=== PATIENT | male | born 1935 | race Caucasian/White ===

== ENCOUNTER 2020-08-15 18:44 | Day surgery (SDCO) | payer OTHER ==
[2020-08-15 21:57] LABS: BASOPHIL 0.3 % (0-2); EOSINOPHIL 1.1 % (0-7); HCT 43.8 % (42.0-52.0); HGB 14.1 g/dl (13.2-18.0); LYMPHOCYTE 20.1 % (15-48); MCH 28.5 pg (25.0-31.0); MCHC 32.2 g/dL (32.0-36.0); MCV 88.5 fL (78.0-100.0); MONOCYTE 8.5 % (0-12); MPV 10.7 fL (6.0-9.5); NEUTROPHIL 69.7 % (41-80); NRBC 0; PLT 254 K/uL (150-400); RBC 4.95 M/uL (4.70-6.00); RDW 15.4 % (11.5-14.0); WBC 12.3 K/uL (4.0-10.5)
[2020-08-15 22:23] LABS: ALBUMIN 3.2 g/dL (3.4-5.0); BILIRUBIN - TOTAL 0.5 mg/dL (0.2-1.0); BUN/CREAT RATIO (CALC) 19.3 RATIO; CREATININE 0.57 mg/dL (0.67-1.17); GLOBULIN (CALCULATION) 3.6 g/dL; POTASSIUM 4.1 mmol/L (3.5-5.1); TOTAL PROTEIN 6.8 g/dL (6.4-8.2)
[2020-08-16] MEDS ORDERED: NOVOLOG FL100 UNIT/1 SC (00:15)
[2020-08-16] MEDS ORDERED: METFORMIN HCL500 M3 PO (00:16)
[2020-08-16] MEDS ORDERED: TAMSULOSIN HCL0.4 MG PO (00:21)
[2020-08-16] MEDS ORDERED: PIOGLITAZONE HC30 MG PO (00:23)
[2020-08-16] MEDS ORDERED: LANTUS SOL100 UNIT/1 SC (00:41)
[2020-08-16] MEDS ORDERED: ASPIR-TRIN325 MG PO (00:44)
[2020-08-16 05:30] LABS: BILIRUBIN NEGATIVE (NEGATIVE); BLOOD 1+ Ery/uL (NEGATIVE); CLARITY CLEAR (CLEAR); COLOR YELLOW (YELLOW); GLUCOSE (U) NORMAL (NORMAL); LEUKOCYTES NEGATIVE Leu/uL (NEGATIVE); NITRITE NEGATIVE (NEGATIVE); PROTEIN NEGATIVE (NEGATIVE); UROBILINOGEN 0.2 mg/dL (0.2-1.0)
[2020-08-16 05:40] LABS: BACTERIA TRACE; MUCOUS TRACE; SQUAMOUS EPITHELIAL CELLS RARE
[2020-08-17 05:38] LABS: BASOPHIL 0.5 % (0-2); EOSINOPHIL 2.6 % (0-7); HGB 13.4 g/dl (13.2-18.0); LYMPHOCYTE 23.5 % (15-48); MCH 28.3 pg (25.0-31.0); MCHC 31.9 g/dL (32.0-36.0); MCV 88.6 fL (78.0-100.0); MONOCYTE 12.2 % (0-12); MPV 10.8 fL (6.0-9.5); NRBC 0; PLT 227 K/uL (150-400); RBC 4.74 M/uL (4.70-6.00); RDW 15.1 % (11.5-14.0); WBC 8.1 K/uL (4.0-10.5)
[2020-08-17 06:37] LABS: BUN/CREAT RATIO (CALC) 19.6 RATIO; CREATININE 0.56 mg/dL (0.67-1.17); POTASSIUM 3.9 mmol/L (3.5-5.1)
[2020-08-17] MEDS ORDERED: OXYCODONE-ACET1 EACH PO (15:14)
== END 2020-08-17 16:33 | disposition home health service (06) ==
LOC: FER 18:44 → FMS 21:00 → FER 21:01 → FMS 22:55
PROVIDERS: Nurse Practitioner; Nurse Practitioner Adult Health; ADMIT Allergy & Immunology Allergy
DX: S72.432A Displaced fracture of medial condyle of left femur, initial encounter for closed fracture (principal); S82.65XA Nondisplaced fracture of lateral malleolus of left fibula, initial encounter for closed fracture; R53.1 Weakness; E11.9 Type 2 diabetes mellitus without complications; I10 Essential (primary) hypertension; I25.10 Atherosclerotic heart disease of native coronary artery without angina pectoris; N40.0 Benign prostatic hyperplasia without lower urinary tract symptoms; F17.220 Nicotine dependence, chewing tobacco, uncomplicated; R09.02 Hypoxemia; M19.072 Primary osteoarthritis, left ankle and foot; E66.3 Overweight; Z68.32 Body mass index [BMI] 32.0-32.9, adult; Z86.73 Personal history of transient ischemic attack (TIA), and cerebral infarction without residual deficits; Z86.12 Personal history of poliomyelitis; Z79.4 Long term (current) use of insulin; Z79.82 Long term (current) use of aspirin; Z79.899 Other long term (current) drug therapy; Z95.5 Presence of coronary angioplasty implant and graft; Z20.822 Contact with and (suspected) exposure to COVID-19; W18.30XA Fall on same level, unspecified, initial encounter
CPT/HCPCS: 36415; 71045; 73560; 73600; 80048; 80053; 81001; 84484; 85025; 87088; 97162; 97166; 97530; 97530-GP; 97535; G0378; J1650; U0002

== ENCOUNTER 2020-08-23 22:09 | Emergency (ER) | payer OTHER ==
[~2020-08-23 22:09] MED LIST: ASPIR-TRIN325 MG PO; LANTUS SOL100 UNIT/1 SC; METFORMIN HCL500 M3 PO; NOVOLOG FL100 UNIT/1 SC; OXYCODONE-ACET1 EACH PO; PIOGLITAZONE HC30 MG PO; TAMSULOSIN HCL0.4 MG PO
[2020-08-24] MEDS ORDERED: KEFLEX250 MG PO (00:59)
== END 2020-08-24 01:15 | disposition home or self-care (01) ==
LOC: FER 22:09
DX: R60.0 Localized edema (principal); E11.9 Type 2 diabetes mellitus without complications; Z79.4 Long term (current) use of insulin
CPT/HCPCS: 93971